=== PATIENT | male | born 1975 | race Hispanic/Latino ===

== ENCOUNTER 2016-06-28 15:41 | Inpatient (IN) | payer MEDICAID, OTHER ==
[2016-03-11 17:23] VITALS: BMI 18.1
[2016-06-28 23:49] LABS: HEMATOCRIT 45.1 % (35.0-51.0); MEAN CELL VOLUME 93.3 fL (80.0-94.0); MEAN CORPUSCULAR HEMOGLOBIN 30.9 pg (27.0-31.0); MEAN CORPUSCULAR HGB CONC 33.1 g/dL (33.0-37.0); MEAN PLATELET VOLUME 9.1 fL (7.2-11.7); RED CELL DISTRIBUTION WIDTH 14.2 % (11.5-14.5); WHITE BLOOD COUNT 8.6 K/uL (4.8-10.8)
[2016-06-29 06:28] LABS: URINE COLOR AMBER (YELLOW); URINE GLUCOSE (UA) Normal (Normal)
[2016-06-29 06:29] LABS: RBC URINE 3 /hpf (0-3); URINE BACTERIA RARE (<OCC); URINE BILIRUBIN NEGATIVE (NEGATIVE); URINE BLOOD NEGATIVE (NEGATIVE); URINE KETONE TRACE mg/dL (NEGATIVE); URINE LEUKOCYTE ESTERASE NEGATIVE Leu/uL (Negative); URINE PROTEIN NEGATIVE (NEGATIVE); URINE UROBILINOGEN Normal mg/dL (0.2-1.0); WBC URINE 1 /hpf (0-5)
[2016-06-29 08:05] LABS: BLOOD UREA NITROGEN 17 mg/dL (9-20); CARBON DIOXIDE 33 mmol/L (22-30); CHLORIDE 98 mmol/L (98-107); GFR AFRICAN-AMERICAN > 60; GLUCOSE,RANDOM 84 mg/dL (75-110); SODIUM 141 mmol/L (132-148)
[2016-06-29 08:06] LABS: ALB/GLOB RATIO 1.4 (1.0-2.1); ALCOHOL SERUM < 10 mg/dl (0-10); ALKALINE PHOSPHATASE 71 U/L (38-126); ALT/SGPT 222 U/L (21-72); AST/SGOT 117 U/L (17-59); BILIRUBIN,TOTAL 0.8 mg/dL (0.2-1.3); CALCIUM 8.6 mg/dl (8.6-10.4); TOTAL PROTEIN 7.2 g/dL (6.3-8.3)
--- NOTE | 2016-06-29 09:45 | PCM.PSYCH ---
Initial Psychiatric Evaluation - Initial Psychiatric Evaluation Type of Admission: Voluntary Legal Status: Capacity Chief Complaint (in patient's own words): "I relapsed a month ago" History of Present Illness and Precipitating Events: The pt is seen, chart reviewed and case discussed He is known from a previous admission to detox. 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 He says he went to [facility], got on suboxone but then he quit after 1.5 months and relapsed due to"stressful events." He started when he was 17 y/o and longest sobriety was for 4 years. Also using Xanax 4 mg/d. Denies all others but smokes 1/2 ppd cigarette He has been to 6-7 detoxes and 2 rehabs No methadone or sbx Past psych hx: Likely generalized anxiety d/o as he is "always anxious" Medical; None Family psych hx: Brother was an alcoholic Current Medications: Active Medications Generic Name Dose Route Start Last Admin Trade Name Freq PRN Reason Stop Dose Admin Clonidine HCl 0.1 mg 06/28/16 21:58 Catapres PO Q4H PRN Symptoms of alcohol withdrawl Escitalopram Oxalate 20 mg 06/29/16 10:00 Lexapro PO DAILY YULISSA Folic Acid 1 mg 06/29/16 10:00 Folic Acid PO DAILY YULISSA Gabapentin 400 mg 06/29/16 10:00 Neurontin PO TID YULISSA Lorazepam 2 mg 06/28/16 22:00 06/29/16 05:50 Ativan PO 07/03/16 21:59 Not Given Q6H YULISSA Taper Lorazepam 1 mg 06/28/16 21:58 Ativan PO Q4H PRN Symptoms of alcohol withdrawl Multivitamins 1 tab 06/29/16 10:00 Hexavitamin PO DAILY YULISSA Pneumococcal Polyvalent Vaccine 0.5 ml 06/30/16 10:00 Pneumovax 23 Vaccine IM 06/30/16 10:01 .ONCE ONE Quetiapine Fumarate 50 mg 06/28/16 22:15 06/28/16 22:15 Seroquel PO 50 mg HS YULISSA Administration Thiamine HCl 100 mg 06/29/16 10:00 Vitamin B1 Tab PO DAILY YULISSA Trazodone HCl 50 mg 06/28/16 21:58 Desyrel PO HS PRN Insomnia Past Psychiatric History - Past Psychiatric History Previous Treatment History: None Pertinent Medical Hx (Current Medical&Sleep Prob, Allergies): Allergies Allergy/AdvReac Type Severity Reaction Status Date / Time No Known Allergies Allergy Verified 03/11/16 17:52 RX: Multivitamins [Hexavitamin] 1 tab PO DAILY #30 tab 03/15/16 RX: traZODone [Desyrel] 50 mg PO HS PRN #30 tab 03/15/16 Review of Systems - Neurological Neurological: UNREMARKABLE - Psychiatric Psychiatric: Abnormal Sleep Pattern, Anxiety, Change in Appetite, Difficulty Concentrating, Irritability. absent: Depression, Hallucinations, Homicidal Ideation, Suicidal Ideation Mental Status Examination - Personal Presentation Personal Presentation: Looks stated age (thin) - Affect Affect: Constricted - Motor Activity Motor Activity: Calm - Reliability in Providing Information Reliability in Providing Information: Good - Speech Speech: Organized - Mood Mood: Anxious - Formal Thought Process Formal Thought Process: No Impairment - Cognitive Functions Orientation: Person, Place, Situation, Time Sensorium: Alert Attention/Concentration: Attentive Estimate of Intelligence: Average Judgement: Intact, as evidence by: Insight regarding need for hospitalization Memory: Recent intact, as evidence by: Ability to recall events of the day, Remote intact, as evidenced by: Abilit to recall sig. 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
[2016-06-29] MEDS: Multiple Vitamins Tab PO SCH (10:00)
[2016-06-29] MEDS ORDERED: Buprenorphine Hydrochloride 2 mg SL ONE ×2 (12:52→14:06)
[2016-06-30] MEDS ORDERED: Pneumococcal 23-Valent Vaccine IM ONE (10:00)
[2016-06-30] MEDS: Buprenorphine Hydrochloride 2 mg SL SCH (10:30)
[2016-06-30] MEDS: Multiple Vitamins Tab PO SCH (10:30)
--- NOTE | 2016-07-01 00:57 | PCM.PYCHPN ---
Psychiatric Progress Note - Psychiatric Progress Note Patient seen today, length of contact: 17 min Patient Chief Complaint: I am not sleeping that well. Problems Identified/Issues Discussed: Pt complained of insomnia.Pt also washaving weird dreams when able to sleep. discussed after care about [facility] Medical Problems: nothing acute Diagnostic Results: reviewed DSM 5 Symptoms Update: insomnia Medication Change: Yes (change in dose during taper) Medical Record Reviewed: Yes Mental Status Examination - Cognitive Function Orientation: Person, Place, Situation, Time Memory: Intact Attention: Poor Concentration: Poor Association: WNL Fund of Knowledge: WNL - Mood Mood: Anxious - Affect Affect: Constricted - Speech Speech: Appropriate - Formal Thought Process Formal Thought Process: No Impairment Goal/Treatment Plan - Goal/Treatment Plan Need for Continued Stay: Remain at risks for inpatient hospitalization, Severe depression anxiety Progress Toward Problem(s) and Goals/Treatment Plan: opioiid withdrawal pt is eating all right but cannot sleep opioid use disorder increased understanding of triggers sedative-hypnotic withdrawal rebound anxiety sedative hypnotic use disorderanxiety about staying clean Estimated Date of D/C: 07/02/16 - Smoking Cessation Smoking Cessation Initiated: No
[2016-07-01] MEDS: Buprenorphine Hydrochloride 2 mg SL SCH (09:47)
[2016-07-01] MEDS: Multiple Vitamins Tab PO SCH (09:48)
--- NOTE | 2016-07-01 21:44 | PCM.PYCHPN ---
Psychiatric Progress Note - Psychiatric Progress Note Patient seen today, length of contact: 17 min Patient Chief Complaint: I slept better Problems Identified/Issues Discussed: Pt complained of body achesPt also was having weird dreams when able to sleep. discussed after care about [facility] Medical Problems: nothing acute Diagnostic Results: reviewed Medication Change: Yes (change in dose during taper) Medical Record Reviewed: Yes Mental Status Examination - Cognitive Function Orientation: Person, Situation, Time Memory: Intact Attention: WNL Association: WNL Fund of Knowledge: WNL - Mood Mood: Anxious - Affect Affect: Constricted - Formal Thought Process Formal Thought Process: No Impairment - Suicidal Ideation Suicidal Ideation: No - Homicidal Ideation Homicidal Ideation: No Goal/Treatment Plan - Goal/Treatment Plan Need for Continued Stay: Remain at risks for inpatient hospitalization, Severe depression anxiety Progress Toward Problem(s) and Goals/Treatment Plan: opioiid withdrawal pt is eating all right and sleeping better sleep opioid use disorder increased understanding of triggers sedative-hypnotic withdrawal rebound anxiety sedative hypnotic use disorderanxiety about staying clean Estimated Date of D/C: 07/02/16 - Smoking Cessation Smoking Cessation Initiated: No
--- NOTE | 2016-07-01 21:58 | PCM.PYCHPN ---
Psychiatric Progress Note - Psychiatric Progress Note Patient seen today, length of contact: 17 min Patient Chief Complaint: I feel better Problems Identified/Issues Discussed: Pt also was having weird dreams when able to sleep. discussed after care about [facility] Post Acute withdrawal syndrome. Medical Problems: nothing acute Diagnostic Results: reviewed Medication Change: Yes (change in dose during taper) Medical Record Reviewed: Yes Mental Status Examination - Cognitive Function Orientation: Person, Situation, Time Memory: Intact Attention: WNL Concentration: WNL Association: WNL Fund of Knowledge: WNL - Mood Mood: Anxious - Affect Affect: Constricted - Speech Speech: Appropriate - Formal Thought Process Formal Thought Process: No Impairment - Suicidal Ideation Suicidal Ideation: No - Homicidal Ideation Homicidal Ideation: No Goal/Treatment Plan - Goal/Treatment Plan Need for Continued Stay: Remain at risks for inpatient hospitalization, Severe depression anxiety Progress Toward Problem(s) and Goals/Treatment Plan: opioiid withdrawal pt is eating all right and sleeping better opioid use disorder increased understanding of triggers sedative-hypnotic withdrawal rebound anxiety sedative hypnotic use disorder anxiety about staying clean Estimated Date of D/C: 07/02/16 - Smoking Cessation Smoking Cessation Initiated: No
[2016-07-02] MEDS: Multiple Vitamins Tab PO SCH (09:32)
[2016-07-02] MEDS: Buprenorphine Hydrochloride 2 mg SL SCH (09:33)
[2016-07-02 13:12] VITALS: RESP 18
--- NOTE | 2016-07-03 00:42 | PCM.PYCHPN ---
Psychiatric Progress Note - Psychiatric Progress Note Patient seen today, length of contact: 17 min Patient Chief Complaint: "I am better" Problems Identified/Issues Discussed: The pt is seen, chart reviewed, case discussed with staff. The pt is compliant with medications and reports no side-effects. Symptoms are improving but needs more time to stabilize. After care discussed, support and psychoeducation given. [place] and CBT used briefly. Medication Change: Yes (change in dose during taper) Medical Record Reviewed: Yes Mental Status Examination - Cognitive Function Orientation: Person, Situation, Time Memory: Intact Attention: WNL Concentration: WNL Association: WNL Fund of Knowledge: WNL - Mood Mood: Anxious - Affect Affect: Constricted - Speech Speech: Appropriate - Formal Thought Process Formal Thought Process: No Impairment - Suicidal Ideation Suicidal Ideation: No - Homicidal Ideation Homicidal Ideation: No Goal/Treatment Plan - Goal/Treatment Plan Need for Continued Stay: Remain at risks for inpatient hospitalization, Severe depression anxiety Progress Toward Problem(s) and Goals/Treatment Plan: Opioids: - subutex detox - as needed meds - attend groups and activities - [place] and CBT for abstinence Benzos: - librium detox - as needed meds - attend groups and activities - AR and CBT for abstinence Estimated Date of D/C: 07/03/16
--- NOTE | 2016-07-03 08:54 | PCM.PYCHDC ---
Mental Status Examination - Mental Status Examination Orientation: Person, Place, Situation, Time Memory: Intact Mood: Anxious Affect: Constricted Speech: Appropriate Attention: WNL Concentration: WNL Association: WNL Fund of Knowledge: WNL Formal Thought Process: No Impairment Suicidal Ideation: No Current Homicidal Ideation?: No Discharge Summary - Discharge Note Reason for Hospitalization: Heroin and benzo detox Consultations:: List each consultation separately and include: 1. Reason for request. 2. Findings. 3. Follow-up Summary of Hospital Course include:: 1. Description of specific treatment plan utilized for patients during their course of treatmen. 2. Summarize the time- course for resolution of acute symptoms and/or regressed behaviors. 3. Describe issues identified and worked on during hospitalization. 4. Describe medication utilized. 5. Describe medical problems identified and treated. 6. Reassessment of suicide risk Summary of Hospital Course: On admission: The pt is seen, chart reviewed and case discussed He is known from a previous admission to detox. 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 He says he went to [facility], got on suboxone but then he quit after 1.5 months and relapsed due to"stressful events." He started when he was 17 y/o and longest sobriety was for 4 years. Also using Xanax 4 mg/d. Denies all others but smokes 1/2 ppd cigarette He has been to 6-7 detoxes and 2 rehabs No methadone or sbx Past psych hx: Likely generalized anxiety d/o as he is "always anxious" Medical; None Family psych hx: Brother was an alcoholic Hospital course: The pt was admitted and started on treatment with psychotherapy, support, psychoeducation and medications. [place] and CBT used. The pt attended groups and activities, as well as milieu therapy. All the risks and benefits of medications are discussed and the patient understood and agreed. After care discussed with the patient. 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 Follow after care plan as discussed. Attend [facility] Use relapse prevention skills Return to ER or call 911 if suicidal, homicidal or symptoms relapse. Stay away from stress, alcohol and drugs. Prescriptions/Medication Reconciliation: Escitalopram [Lexapro] 20 mg PO DAILY #30 tab Gabapentin [Neurontin] 400 mg PO TID #90 cap QUEtiapine [SEROquel] 50 mg PO HS #30 tab - Smoking Cessation Smoking Cessation Medication prescribed: No - Antipsychotic Medications Pt discharged on 2 or more routine antipsychotic medications: No
[2016-07-03] MEDS: Multiple Vitamins Tab PO SCH (09:17)
[2016-07-03] MEDS: Buprenorphine Hydrochloride 2 mg SL SCH (09:17)
[2016-07-03 09:59] VITALS: BP 129/73; PULSE 79; TEMP 98.2; O2SAT 96
== END 2016-07-03 10:30 | disposition home or self-care (01) | DRG 745 ==
LOC: C.ER 15:41 → C.7D 18:00
PROVIDERS: ADMIT Psychiatry & Neurology Psychiatry; ATTEND Psychiatry & Neurology Psychiatry
PROC: HZ2ZZZZ Detoxification Services for Substance Abuse Treatment (ICD-10-PCS; principal; 2016-06-28)
PROC: HZ32ZZZ Individual Counseling for Substance Abuse Treatment, Cognitive-Behavioral (ICD-10-PCS; 2016-06-28)
PROC: HZ46ZZZ Group Counseling for Substance Abuse Treatment, Psychoeducation (ICD-10-PCS; 2016-06-28)
PROC: HZ42ZZZ Group Counseling for Substance Abuse Treatment, Cognitive-Behavioral (ICD-10-PCS; 2016-06-28)
PROC: HZ36ZZZ Individual Counseling for Substance Abuse Treatment, Psychoeducation (ICD-10-PCS; 2016-06-28)
PROC: HZ59ZZZ Individual Psychotherapy for Substance Abuse Treatment, Supportive (ICD-10-PCS; 2016-06-28)
DX: F11.23 Opioid dependence with withdrawal (principal); F10.230 Alcohol dependence with withdrawal, uncomplicated; F13.230 Sedative, hypnotic or anxiolytic dependence with withdrawal, uncomplicated; F41.1 Generalized anxiety disorder; Y90.0 Blood alcohol level of less than 20 mg/100 ml; F17.210 Nicotine dependence, cigarettes, uncomplicated

== ENCOUNTER 2017-02-18 12:41 | Inpatient (IN) | payer MEDICAID ==
[2017-02-18 12:41] VITALS: BMI 18.1
[2017-02-18 13:54] LABS: BASO # 0.1 K/uL (0.0-0.2); BASO % 0.8 % (0.0-2.0); EOS # 0.1 K/uL (0.0-0.7); EOS % 0.9 % (0.0-4.0); HEMOGLOBIN 15.4 g/dL (12.0-18.0); LYMPH # 1.8 K/uL (1.0-4.3); LYMPH % 18.3 % (20.0-40.0); MEAN CELL VOLUME 92.4 fL (80.0-94.0); MEAN CORPUSCULAR HEMOGLOBIN 31.5 pg (27.0-31.0); MEAN CORPUSCULAR HGB CONC 34.1 g/dL (33.0-37.0); MEAN PLATELET VOLUME 9.1 fL (7.2-11.7); MONO # 0.9 K/uL (0.0-0.8); MONO % 9.2 % (0.0-10.0); NEUT # 6.9 K/uL (1.8-7.0); NEUT % 70.8 % (50.0-75.0); RBC 4.88 Mil/uL (4.40-5.90); RED CELL DISTRIBUTION WIDTH 13.1 % (11.5-14.5); WHITE BLOOD COUNT 9.7 K/uL (4.8-10.8)
[2017-02-18 14:03] LABS: URINE BILIRUBIN NEGATIVE (NEGATIVE); URINE BLOOD NEGATIVE (NEGATIVE); URINE CLARITY Clear (Clear); URINE COLOR Yellow (YELLOW); URINE GLUCOSE (UA) NORMAL (Normal); URINE LEUKOCYTE ESTERASE NEG Leu/uL (Negative); URINE NITRATE NEGATIVE (NEGATIVE); URINE PROTEIN NEGATIVE (NEGATIVE); URINE UROBILINOGEN NORMAL mg/dL (0.2-1.0)
--- NOTE | 2017-02-18 14:12 | C.PDOC ---
History Of Present Illness 41 year old male presents to the ED requesting detox. Patient states last use was this morning. Denies suicidal/homicidal ideation and has no other complaints at this time. Time Seen by Provider: 02/18/17 12:55 Chief Complaint (Nursing): Substance Abuse History Per: Patient Onset/Duration Of Symptoms: Hrs Current Symptoms Are (Timing): Still Present Associated Symptoms: denies: Suicidal Thoughts, Suicidal Plan Past Medical History Reviewed: Historical Data, Nursing Documentation, Vital Signs Vital Signs: Last Vital Signs Temp 97.3 F L 02/18/17 12:57 Pulse 84 02/18/17 12:57 Resp 20 02/18/17 12:57 BP 141/90 02/18/17 12:57 Pulse Ox 96 02/18/17 16:26 - Medical History PMH: Anxiety, Depression Denies: Diabetes, Hepatitis, HIV, HTN, Seizures, Sexually Transmitted Disease Surgical History: No Surg Hx - [facility] Procedures DETOXIFICATION SERVICES FOR SUBSTANCE ABUSE TREATMENT (06/28/16) GROUP LACE FINISHER FOR SUBSTANCE ABUSE TREATMENT, PSYCHOEDUCATION (06/28/16) GROUP LACE FINISHER FOR SUBSTANCE ABUSE, COGNITIVE BEHAVIORAL (06/28/16) INDIV LACE FINISHER FOR SUBSTANCE ABUSE TREATMENT, PSYCHOEDUCATION (06/28/16) INDIV LACE FINISHER FOR SUBSTANCE ABUSE, COGNITIVE BEHAVIORAL (06/28/16) INDIV PSYCHOTHERAPY FOR SUBSTANCE ABUSE TREATMENT, SUPPORT (06/28/16) Family History: States: Unknown Family Hx - Social History Hx Tobacco Use: No Hx Alcohol Use: Yes Hx Substance Use: Yes - Immunization History Hx Tetanus Toxoid Vaccination: Yes Hx Influenza Vaccination: No Hx Pneumococcal Vaccination: No Review Of Systems Psych: Positive for: Other (detox ). Negative for: Suicidal ideation Physical Exam - Physical Exam Appears: Non-toxic, No Acute Distress Skin: Normal Color, Warm, Dry Head: Atraumatic, Normacephalic Eye(s): bilateral: Normal Inspection Oral Mucosa: Moist Neck: Supple Chest: Symmetrical, No Deformity, No Tenderness Cardiovascular: Rhythm Regular, No Murmur Respiratory: Normal Breath Sounds, No Rales, No Rhonchi, No Wheezing Extremity: Normal ROM, Capillary Refill (less than 2 seconds ) Neurological/Psych: Oriented x3, Normal Speech, Normal Cognition Gait: Steady ED Course And Treatment - Laboratory Results Result Diagrams: 02/18/17 13:49 01/08/18 13:49 O2 Sat by Pulse Oximetry: 96 (on RA ) Pulse Ox Interpretation: Normal Medical Decision Making Medical Decision Making: Progress: Bloodwork and UA ordered and reviewed. 1603: Patient is medically cleared for admission 1626: Patient eloped from the ED. Disposition - Disposition Disposition: HOSPITALIZED Disposition Time: 16:37 Condition: STABLE - Clinical Impression Clinical Impression: Opiate abuse, continuous - Scribe Statement The provider has reviewed the documentation as recorded by the Scribe (Blank Conway) Provider Attestation: All medical record entries made by the Scribe were at my direction and personally dictated by me. I have reviewed the chart and agree that the record accurately reflects my personal performance of the history, physical exam, medical decision making, and the department course for this patient. I have also personally directed, reviewed, and agree with the discharge instructions and disposition. Decision To Admit - Pt Status Changed To: Hospital Disposition Of: Inpatient - Admit Certification Admit to Inpatient:: After my assessment, the patient will require hospitalization for at least two midnights. This is because of the severity of symptoms shown, intensity of services needed, and/or the medical risk in this patient being treated as an outpatient. - InPatient: Physician Admission Certification: I certify that this patient requires 2 or more midnights of care for the following reason:: needs detox - . Bed Request Type: Detox Admitting Physician: Imelda Martinez Patient Diagnosis: Opiate abuse, continuous
[2017-02-18 14:13] LABS: ALB/GLOB RATIO 1.3 (1.0-2.1); ALBUMIN 4.1 g/dL (3.5-5.0); ALT/SGPT 102 U/L (21-72); AST/SGOT 76 U/L (17-59); BLOOD UREA NITROGEN 16 mg/dL (9-20); CALCIUM 8.3 mg/dl (8.6-10.4); GFR AFRICAN-AMERICAN > 60; GFR NON-AFRICAN AMERICAN > 60
[2017-02-18 14:23] LABS: BARBITURATES, UR NEGATIVE (NEGATIVE); BENZODIAZEPINES, UR NEGATIVE (NEGATIVE); PHENCYCLIDINE, UR NEGATIVE (NEGATIVE)
[2017-02-18 15:22] LABS: OPIATES, UR POSITIVE (NEGATIVE)
[2017-02-18] MEDS ORDERED: Aluminum Hydroxide/Magnesium Hydroxide Susp (30 mL) PO PRN (17:10)
[2017-02-18] MEDS ORDERED: Buprenorphine Hydrochloride 2 mg SL ONE (17:11)
[2017-02-18] MEDS: Buprenorphine Hydrochloride 2 mg SL SCH ×2 (18:11→19:33)
--- NOTE | 2017-02-18 20:17 | PCM.BM ---
<Reshma Albert - Last Filed: 02/18/17 20:16> Treatment Plan Problems - Problems identified on initial assessmt Potential for opiate withdrawal Date Initiated: 02/18/17 Time Initiated: 20:17 Assessment reference: NA Status: Active Priority: 1 Treatment assets and liabiliti Patient Assests: cooperative, physically healthy, negotiates basic needs, cognitively intact Patient Liabilities: substance abuse (heroin) - Milieu Protocol Maintain good personal hygiene: daily Encourage regular showers, daily Remind patient to perform daily oral care, daily Assist patient to perform ADL's Conduct patient checks and document Observation sheet: Q15 minutes Maintain personal safety: every shift Educate patient to report safety concerns to staff, every shift Monitor environment for contraband/sharps Medication safety: Monitor for expected outcome, potential side effects: every shift, Assess barriers to learning: every shift, Assess readiness for medication education: every shift <Tiana Laureano - Last Filed: 02/21/17 13:46> Family Contact Family involvement: Family/SO is involved Family contact: Patient agrees to contact Family contact name: mother - Goals for Treatment Patient goals for treatment: Complete detox and apply for inpatient rehab. Discharge/Continuing Care - Education Needs Education Needs: Patient Medication, Patient Diagnosis/Disease Process, Patient Coping Skills, Patient Anger Management skills, Patient Placement options, Patient Community resources - Discharge Discharge Criteria: No longer exhibiting s/s of withdrawal, Reduction of target symptoms Discharge to:: Substance Abuse Rehab - Treatment Team Participation Patient/Family/SO Statement: 02/19/17 12:36 "i wanna try rehab or if not, at least IOP." Discussed with Family/SO: No Was Patient/Family/SO present at Treatment Team Meeting: Yes <Sumit Tejeda - Last Filed: 02/22/17 14:35> - Diagnosis (1) Opiate abuse, continuous Status: Acute Interventions: 02/22/17 14:35 * Assess 7x/week regarding severity of withdrawal * Educate regarding risks, benefits, side effects and alternatives of medications * Use Motivational Interviewing for abstinence * Use CBT for relapse prevention * Medication management for withdrawal symptoms * Encourage medication assisted treatment * (2) Alcohol abuse Status: Acute Interventions: 02/22/17 14:35 * Assess 7x/week regarding severity of withdrawal * Educate regarding risks, benefits, side effects and alternatives of medications * Use Motivational Interviewing for abstinence * Use CBT for relapse prevention * Medication management for withdrawal symptoms * Encourage medication assisted treatment *
[2017-02-19] MEDS ORDERED: Buprenorphine Hydrochloride 2 mg SL ONE ×2 (10:33→11:45)
[2017-02-19] MEDS: Oxymetazoline 0.05% Nasal Spray (30 ml) NS SCH ×2 (11:43→22:35)
--- NOTE | 2017-02-19 13:20 | PCM.PSYCH ---
Initial Psychiatric Evaluation - Initial Psychiatric Evaluation Type of Admission: Voluntary Legal Status: Capacity Chief Complaint (in patient's own words): "Heroin" History of Present Illness and Precipitating Events: The pt is seen, chart reviewed and case discussed. 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 Medical hx: Denies Current Medications: Active Medications Generic Name Dose Route Start Last Admin Trade Name Freq PRN Reason Stop Dose Admin Al Hydrox/Mg Hydrox/Simethicone 30 ml 02/18/17 17:10 Maalox 30 Ml PO TID PRN Indigestion / Heartburn Clonidine HCl 0.1 mg 02/18/17 17:10 Catapres PO Q8 PRN COWS Score More or Equal to 5 Gabapentin 300 mg 02/19/17 14:00 Neurontin PO TID YLUISSA Guaifenesin/Dextromethorphan 10 ml 02/19/17 10:35 Robitussin Dm PO Q4H PRN Cough and congestion Hydroxyzine HCl 25 mg 02/18/17 17:10 Atarax PO Q6 PRN Agitation Loperamide HCl 2 mg 02/18/17 17:10 Imodium PO Q8 PRN Diarrhea Ondansetron HCl 4 mg 02/18/17 17:10 Zofran Tab PO Q8 PRN Nausea/Vomiting Oxymetazoline HCl 0 ml 02/19/17 10:45 02/19/17 11:43 Afrin 0.05% NS 2 inhaler Q12 YULISSA Administration Pseudoephedrine HCl 60 mg 02/18/17 17:10 Sudafed Tab PO QID PRN Nasal/Sinus Congestion Trazodone HCl 50 mg 02/18/17 22:00 02/18/17 22:14 Desyrel PO 50 mg HS PRN Administration Insomnia Past Psychiatric History - Past Psychiatric History Previous Treatment History: Intensive Outpatient Pertinent Medical Hx (Current Medical&Sleep Prob, Allergies): Allergies Allergy/AdvReac Type Severity Reaction Status Date / Time No Known Allergies Allergy Verified 02/18/17 12:59 Escitalopram [Lexapro] 20 mg PO DAILY #30 tab 07/03/16 Gabapentin [Neurontin] 400 mg PO TID #90 cap 07/03/16 QUEtiapine [SEROquel] 50 mg PO HS #30 tab 07/03/16 Review of Systems - Neurological Neurological: UNREMARKABLE - Psychiatric Psychiatric: Abnormal Sleep Pattern, Anhedonia, Anxiety, Difficulty Concentrating, Irritability. absent: Hallucinations, Homicidal Ideation, Suicidal Ideation Mental Status Examination - Personal Presentation Personal Presentation: Looks stated age - Affect Affect: Constricted - Motor Activity Motor Activity: Calm - Reliability in Providing Information Reliability in Providing Information: Good - Speech Speech: Organized - Mood Mood: Anxious - Formal Thought Process Formal Thought Process: No Impairment - Cognitive Functions Orientation: Person, Place, Situation, Time Sensorium: Alert Attention/Concentration: Attentive Estimate of Intelligence: Average Judgement: Intact, as evidence by: Insight regarding need for hospitalization Memory: Recent intact, as evidence by: Ability to recall events of the day, Remote intact, as evidenced by: Abilit to recall sig. 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 Cannabis use d/o - mild Depressive d/o - unspecified - Recommended/Plan of Treatment Treatment Recommendations and Plan of Treatment: Subutex detox Librium detox As needed medications Gabapentin for augmentation Seroquel hs Attend groups and activities Supportive therapy and psychoeducation [place] for abstinence CBT for relapse prevention Encourage MAT Refer to rehab or IOP Attend self-help groups as well 34 min Projected ELOS: 4-5 days Prognosis: good w treatment - Smoking Cessation Smoking Cessation Initiated: Yes
[2017-02-19] MEDS ORDERED: Buprenorphine Hydrochloride 2 mg SL SCH (17:11)
[2017-02-19] MEDS: guaiFENesin DM 200 mg-20 mg/10 ml UD PO PRN (20:09)
[2017-02-19] MEDS: Magnesium Hydroxide Susp 30 ml UD PO PRN (21:27)
[2017-02-20] MEDS: Buprenorphine Hydrochloride 2 mg SL SCH (10:45)
[2017-02-20] MEDS: Oxymetazoline 0.05% Nasal Spray (30 ml) NS SCH ×2 (10:47→22:07)
[2017-02-20] MEDS: guaiFENesin DM 200 mg-20 mg/10 ml UD PO PRN ×2 (10:47→22:10)
--- NOTE | 2017-02-20 11:51 | PCM.PYCHPN ---
Psychiatric Progress Note - Psychiatric Progress Note Patient seen today, length of contact: 16 min Patient Chief Complaint: "better" Problems Identified/Issues Discussed: The pt is seen, chart reviewed, case discussed with staff. Patient had complaints of not being able to sleep through the night. The pt is compliant with medications and reports no side-effects. Symptoms are improving but needs more time to stabilize. After care discussed, support and psychoeducation given. Medication Change: Yes Medical Record Reviewed: Yes Mental Status Examination - Cognitive Function Orientation: Person, Place, Situation, Time Memory: Intact Attention: WNL Concentration: WNL Association: WNL Fund of Knowledge: WNL - Mood Mood: Anxious - Affect Affect: Constricted - Speech Speech: Soft - Formal Thought Process Formal Thought Process: No Impairment - Suicidal Ideation Suicidal Ideation: No - Homicidal Ideation Homicidal Ideation: No Goal/Treatment Plan - Goal/Treatment Plan Need for Continued Stay: Discharge may exacerbated symptoms Progress Toward Problem(s) and Goals/Treatment Plan: Subutex detox Librium detox As needed medications Gabapentin for augmentation Seroquel hs Attend groups and activities Supportive therapy and psychoeducation [place] for abstinence CBT for relapse prevention Encourage MAT Refer to rehab or IOP Attend self-help groups as well
[2017-02-21] MEDS: guaiFENesin DM 200 mg-20 mg/10 ml UD PO PRN ×2 (09:54→22:49)
[2017-02-21] MEDS: Oxymetazoline 0.05% Nasal Spray (30 ml) NS SCH ×2 (09:54→21:26)
[2017-02-21] MEDS: Buprenorphine Hydrochloride 2 mg SL SCH (09:55)
[2017-02-21] MEDS: Magnesium Hydroxide Susp 30 ml UD PO PRN (13:56)
--- NOTE | 2017-02-21 14:49 | PCM.PYCHPN ---
Psychiatric Progress Note - Psychiatric Progress Note Patient seen today, length of contact: 16 min Patient Chief Complaint: "I have anxiety" Problems Identified/Issues Discussed: The pt is seen, chart reviewed, case discussed with staff. Support given, CBT and DE used briefly No new symptoms reported, improving slowly and needs more time No SEs from medications, risks discussed. After care discussed Medication Change: Yes (detox changes daily) Medical Record Reviewed: Yes Mental Status Examination - Cognitive Function Orientation: Person, Place, Situation, Time Memory: Intact Attention: WNL Concentration: WNL Association: WNL Fund of Knowledge: WNL - Mood Mood: Anxious - Affect Affect: Constricted - Speech Speech: Soft - Formal Thought Process Formal Thought Process: No Impairment - Suicidal Ideation Suicidal Ideation: No - Homicidal Ideation Homicidal Ideation: No Goal/Treatment Plan - Goal/Treatment Plan Need for Continued Stay: Discharge may exacerbated symptoms, Severe functional impairment Progress Toward Problem(s) and Goals/Treatment Plan: Subutex detox Librium detox As needed medications Gabapentin for augmentation Seroquel hs Attend groups and activities Supportive therapy and psychoeducation [place] for abstinence CBT for relapse prevention Encourage MAT Refer to rehab or IOP Attend self-help groups as well
[2017-02-22] MEDS: Oxymetazoline 0.05% Nasal Spray (30 ml) NS SCH ×2 (09:23→21:58)
[2017-02-22] MEDS: Buprenorphine Hydrochloride 2 mg SL SCH (09:24)
--- NOTE | 2017-02-22 12:49 | PCM.PYCHPN ---
Psychiatric Progress Note - Psychiatric Progress Note Patient seen today, length of contact: 16 min Patient Chief Complaint: "Constipation" Problems Identified/Issues Discussed: The pt is seen, chart reviewed, case discussed with staff. The pt is compliant with medications and reports no side-effects. Symptoms are improving but needs more time to stabilize. After care discussed, support and psychoeducation given. Medication Change: Yes (detox changes daily) Medical Record Reviewed: Yes Mental Status Examination - Cognitive Function Orientation: Person, Place, Situation, Time Memory: Intact Attention: WNL Concentration: WNL Association: WNL Fund of Knowledge: WNL - Mood Mood: Anxious - Affect Affect: Constricted - Speech Speech: Soft - Formal Thought Process Formal Thought Process: No Impairment - Suicidal Ideation Suicidal Ideation: No - Homicidal Ideation Homicidal Ideation: No Goal/Treatment Plan - Goal/Treatment Plan Need for Continued Stay: Discharge may exacerbated symptoms, Severe functional impairment Progress Toward Problem(s) and Goals/Treatment Plan: Subutex detox Librium detox As needed medications Gabapentin for augmentation Seroquel hs Attend groups and activities Supportive therapy and psychoeducation [place] for abstinence CBT for relapse prevention Encourage MAT Refer to rehab or IOP Attend self-help groups as well Leaving tomorrow when detox ends
[2017-02-22 15:31] VITALS: RESP 18; O2SAT 98
[2017-02-22] MEDS: guaiFENesin DM 200 mg-20 mg/10 ml UD PO PRN (19:08)
[2017-02-23 08:55] VITALS: BP 114/82; PULSE 79; TEMP 98.1
[2017-02-23] MEDS: Oxymetazoline 0.05% Nasal Spray (30 ml) NS SCH (09:39)
[2017-02-23] MEDS: guaiFENesin DM 200 mg-20 mg/10 ml UD PO PRN (09:39)
[2017-02-23] MEDS: Buprenorphine Hydrochloride 2 mg SL SCH (09:40)
[2017-02-23] MEDS ORDERED: buPROPion 150 mg/24 Hours XL Tab PO SCH (10:00)
--- NOTE | 2017-02-23 10:12 | PCM.PYCHDC ---
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 Consultations:: List each consultation separately and include: 1. Reason for request. 2. Findings. 3. Follow-up Summary of Hospital Course include:: 1. Description of specific treatment plan utilized for patients during their course of treatmen. 2. Summarize the time- course for resolution of acute symptoms and/or regressed behaviors. 3. Describe issues identified and worked on during hospitalization. 4. Describe medication utilized. 5. Describe medical problems identified and treated. 6. 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 Cannabis use d/o - mild Depressive d/o - unspecified Disposition: HOME/ ROUTINE Prescriptions/Medication Reconciliation: buPROPion XL [Wellbutrin XL] 150 mg PO DAILY #30 t24 Gabapentin [Neurontin] 400 mg PO TID #90 cap QUEtiapine [Seroquel] 100 mg PO HS #30 tab - Smoking Cessation Smoking Cessation Medication prescribed: No - Antipsychotic Medications Pt discharged on 2 or more routine antipsychotic medications: No
== END 2017-02-23 10:30 | disposition home or self-care (01) | DRG 745 ==
LOC: C.ER 12:41 → C.7D 16:02
PROVIDERS: ADMIT Psychiatry & Neurology Psychiatry; ATTEND Psychiatry & Neurology Psychiatry
PROC: HZ2ZZZZ Detoxification Services for Substance Abuse Treatment (ICD-10-PCS; principal; 2017-02-19)
PROC: HZ52ZZZ Individual Psychotherapy for Substance Abuse Treatment, Cognitive-Behavioral (ICD-10-PCS; 2017-02-19)
PROC: HZ42ZZZ Group Counseling for Substance Abuse Treatment, Cognitive-Behavioral (ICD-10-PCS; 2017-02-19)
PROC: HZ59ZZZ Individual Psychotherapy for Substance Abuse Treatment, Supportive (ICD-10-PCS; 2017-02-19)
PROC: HZ56ZZZ Individual Psychotherapy for Substance Abuse Treatment, Psychoeducation (ICD-10-PCS; 2017-02-19)
PROC: HZ46ZZZ Group Counseling for Substance Abuse Treatment, Psychoeducation (ICD-10-PCS; 2017-02-19)
DX: F11.23 Opioid dependence with withdrawal (principal); F13.29 Sedative, hypnotic or anxiolytic dependence with unspecified sedative, hypnotic or anxiolytic-induced disorder; F17.210 Nicotine dependence, cigarettes, uncomplicated; F12.90 Cannabis use, unspecified, uncomplicated; F32.9 Major depressive disorder, single episode, unspecified; F41.9 Anxiety disorder, unspecified

== ENCOUNTER 2017-07-17 11:26 | Emergency (ER) | payer MEDICAID ==
[2017-07-17 11:26] VITALS: BMI 18.1
[2017-07-17 11:37] VITALS: BP 131/84; PULSE 65; RESP 18; TEMP 98.8; O2SAT 99
--- NOTE | 2017-07-17 12:42 | C.PDOC ---
History Of Present Illness 42 y/o male presents to ED requesting detox from ETOH, Benzo and opiates. Patient reports last use earlier today and denies si/hi, withdrawal signs or any other complaints at this time. Time Seen by Provider: 07/17/17 11:42 Chief Complaint (Nursing): Substance Abuse History Per: Patient History/Exam Limitations: no limitations Onset/Duration Of Symptoms: Days Current Symptoms Are (Timing): Still Present Suicide/Self Injury Attempted (Context): None Modifying Factor(s): Alcohol Past Medical History Reviewed: Historical Data, Nursing Documentation, Vital Signs Vital Signs: Last Vital Signs Temp 98.8 F 07/17/17 11:34 Pulse 65 07/17/17 11:34 Resp 18 07/17/17 11:34 BP 131/84 07/17/17 11:34 Pulse Ox 99 07/17/17 12:59 - Medical History PMH: Anxiety, Asthma, Depression Surgical History: No Surg Hx - [facility] DETOXIFICATION SERVICES FOR SUBSTANCE ABUSE TREATMENT (02/18/17) GROUP MEDIA PRODUCER FOR SUBSTANCE ABUSE TREATMENT, PSYCHOEDUCATION (02/18/17) GROUP MEDIA PRODUCER FOR SUBSTANCE ABUSE, COGNITIVE BEHAVIORAL (02/18/17) INDIV MEDIA PRODUCER FOR SUBSTANCE ABUSE TREATMENT, PSYCHOEDUCATION (06/28/16) INDIV MEDIA PRODUCER FOR SUBSTANCE ABUSE, COGNITIVE BEHAVIORAL (06/28/16) INDIV PSYCHOTHERAPY FOR SUBSTANCE ABUSE TREATMENT, SUPPORT (02/18/17) INDIV PSYCHOTHERAPY FOR SUBSTANCE ABUSE, COGNITIV BEHAVIORAL (02/18/17) INDIV PSYCHOTHERAPY FOR SUBSTANCE ABUSE, PSYCHOEDUCATION (02/18/17) Family History: States: No Known Family Hx - Social History Hx Tobacco Use: No Hx Alcohol Use: Yes Hx Substance Use: Yes - Immunization History Hx Tetanus Toxoid Vaccination: Yes Hx Influenza Vaccination: No Hx Pneumococcal Vaccination: No Review Of Systems Except As Marked, All Systems Reviewed And Found Negative. Physical Exam - Physical Exam Appears: Non-toxic, No Acute Distress Skin: Warm, Dry, No Rash Head: Atraumatic, Normacephalic Eye(s): bilateral: Normal Inspection Oral Mucosa: Moist Neck: Normal ROM, Supple Cardiovascular: Rhythm Regular Respiratory: Normal Breath Sounds, No Rales, No Rhonchi, No Wheezing Gastrointestinal/Abdominal: Soft, No Tenderness, No Guarding, No Rebound Neurological/Psych: Oriented x3, Normal Speech, Normal Cognition ED Course And Treatment O2 Sat by Pulse Oximetry: 99 (RA) Pulse Ox Interpretation: Normal Medical Decision Making Medical Decision Making: Assessment: Detox Progress: D/w crisis, no detox beds available Patient d/c with outpatient detox list. Disposition - Disposition Referrals: [facility] [Outside] Disposition: HOME/ ROUTINE Disposition Time: 12:40 Condition: STABLE Additional Instructions: follow up with your doctor in 2 days call detox list as provided return to ER if symptoms worsens or progress Instructions: Drug Abuse Treatment, Polysubstance Abuse (DC) Forms: [facility] ([place]), General Discharge Instructions - Clinical Impression Clinical Impression: Drug abuse - Scribe Statement The provider has reviewed the documentation as recorded by the Scribe Bettina Shah All medical record entries made by the Crispinibana were at my direction and personally dictated by me. I have reviewed the chart and agree that the record accurately reflects my personal performance of the history, physical exam, medical decision making, and the department course for this patient. I have also personally directed, reviewed, and agree with the discharge instructions and disposition.
== END 2017-07-17 12:53 | disposition home or self-care (01) ==
LOC: C.ER 11:26
DX: F19.10 Other psychoactive substance abuse, uncomplicated (principal)